=== PATIENT | male | born 1970 | race Caucasian/White ===

== ENCOUNTER 2020-08-21 00:55 | Observation (INO) ==
[2020-08-21] MEDS ORDERED: NITROGLYCERIN SL 0.4 MG/TAB TAB SL PRN ×2 (01:08→04:07)
--- NOTE | 2020-08-21 01:12 | Emergency Department Note ---
History of Present Illness General Chief Complaint: Chest Pain Stated Complaint: PAIN IN CHEST Time Seen by Provider: 08/21/20 01:02 History of Present Illness Maximum Pain Intensity: 2 This 50-year-old presents to the ER complaining of left-sided chest pain Location: Left-sided chest Quality: Pressure Severity: Moderate Duration: Past few hours Timing: Started while playing chess on the computer Context: Patient was concerned and came in Modifying factors: better with nothing; worse with nothing Patient denies any prior heart problems. Patient denies exertional chest pain, dyspnea, fever, chills, flulike illness, abdominal pain, leg pain or swelling, Covid. He has not received the Covid vaccine. He does not smoke. Home Medications Medication Instructions Recorded Confirmed Type albuterol sulfate [Proventil HFA] 2 puff INHALATION Q4 PRN 03/10/19 04/25/20 History multivitamin 1 tab PO HS 03/10/19 04/25/20 History omega 9-buy-kvr-fish oil [Fish Oil] 1 cap PO HS 03/10/19 04/25/20 History Allergies Allergy/AdvReac Type Severity Reaction Status Date / Time aspirin Allergy Unknown unknown, Verified 04/25/20 08:51 was told as kid demeclocycline Allergy Unknown unknown, Verified 04/25/20 08:51 [From Declomycin] was told as kid Tetracyclines Allergy Unknown Uncoded 04/25/20 08:51 Past Med/Surg History Medical History (Updated 08/21/20 @ 02:03 by Loreta Oswald PA-C) Asthma inhaler prn Attention and concentration deficit Elevated BP without diagnosis of hypertension Hyperlipidemia Mild asthma Morbid obesity with BMI of 40.0-44.9, adult Obstructive sleep apnea Pre-diabetes Sleep apnea cpap Surgical History History of oral surgery to reinserted broken teeth History of removal of cyst behind ear History of tonsillectomy and adenoidectomy History of wisdom tooth extraction Family History Grandfather (Maternal) Family history of diabetes mellitus Other No family history of adverse response to anesthesia Social History Smoking Status: Never smoker Second Hand Exposure: No; Hx Alcohol Use: Yes Alcohol type: beer Alcohol Intake Frequency: Monthly or Less Hx Substance Use: No Preferred Language: Tamazight Communication Ability: Effective Visual Impairment: Limited Hearing Ability: Normal 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 Beliefs That Will Affect Care: None marital status: Single Current Living Situation: Family Current Living Situation Comment: Lives with daughter 50/50 current occupational status: employed Feels Safe at Home: Yes Childhood Exposure to Second-Hand Smoke: No caffeine: Yes Dental Care, Regularly: No Physical Activity Frequency: 3-4 Times per Week Physical Activity Frequency Comment: yard work, walking Seatbelt Use: always Sunscreen Use: Yes Assistive Devices: CPAP and Glasses Review of Systems A total of 10 systems reviewed and were otherwise negative Physical Exam Vital Signs Vital Signs - 24 hr 08/21/20 01:00 08/21/20 01:18 Temperature 36.9 C Temperature Source Oral Pulse Rate 98 H Respiratory Rate 20 Respiratory Effort / Characteristics Non-Labored Spontaneous Respiratory Depth Normal Blood Pressure 171/93 H Blood Pressure Mean 119 Pulse Oximetry 97 95 Oxygen Delivery Method Room Air Room Air Sepsis Recent Fever Within 48 Hours No Sepsis New/Unexplained Change in Mental Status No Sepsis Action Taken by Nursing No Action Required VITALS: Vitals are noted on the nurse's note and reviewed by myself. Vital s igns stable. GENERAL: Anxious appearing male, in no acute distress, nondiaphoretic, well- developed well-nourished. SKIN: Capillary reflex less than 2 seconds. HEENT: Normocephalic. PERRLA. EOMI. Nares patent. Mucous membranes moist. Neck is supple without nuchal rigidity. HEART: Regular rate and rhythm, chest nontender to palpation LUNGS: Clear to auscultation bilaterally without wheezes, rales or rhonchi. No retractions or accessory muscle use. ABDOMEN: Positive bowel sounds x 4. Normal tympanic percussion. Soft, nontender, without masses or organomegaly. Arteaga sign negative. No guarding or rebound tenderness. MUSCULOSKELETAL: No gross musculoskeletal defects. NEURO: Patient was alert and oriented to person place and time. No focal neurological deficits. Course Administered Medications Nitroglycerin (Nitroglycerin Sl 0.4 Mg/Tab Tab) 0.4 mg SL UD PRN PRN Reason: Chest Pain Stop: 09/20/20 01:07 Last Admin: 08/21/20 01:15 Dose: 0.4 mg Documented by: [id number] Medical Decision Making Medical Records Attestation: I reviewed the patient's medical records. Home Medications Current Medication List: was personally reviewed by me Laboratory Data Attestation: I reviewed the patient's lab results. Result diagrams: 08/21/20 01:11 08/21/20 01:11 Labs: Lab Results 08/21/20 08/21/20 08/21/20 Range/Units 01:11 01:11 01:11 WBC 8.48 (4.8-10.8) K/uL RBC 5.02 (4.7-6.1) M/uL Hgb 15.6 (14.0-18.0) g/dL Hct 45.9 (42-52) % MCV 91.4 (80-100) fL MCH 31.1 (25-34) pg MCHC 34.0 (32-36) g/dL RDW Std Deviation 43.3 (36.4-46.3) fL RDW Coeff of Martin 13.1 (11.5-14.5) % Plt Count 311 (130-400) K/uL MPV 9.7 (7.4-10.4) fL Immature Gran % (Auto) 0.2 % Neut % (Auto) 56.2 % Lymph % (Auto) 30.7 % Emmons % (Auto) 8.1 % Eos % (Auto) 4.1 % Baso % (Auto) 0.7 % Neut # (Auto) 4.76 (1.4-6.5) K/uL Lymph # (Auto) 2.60 (1.2-3.4) K/uL Emmons # (Auto) 0.69 H (0.11-0.59) K/uL Eos # (Auto) 0.35 (0-0.5) K/uL Baso # (Auto) 0.06 (0-0.2) K/uL Immature Gran # (Auto) 0.02 (0.00-0.02) K/uL D-Dimer 330 (0-500) ug/L FEU Sodium 141 (136-145) mmol/L Potassium 4.0 (3.5-5.1) mmol/L Chloride 106 (98-107) mmol/L Carbon Dioxide 28 (21-32) mmol/L Anion Gap 7.0 (3-11) BUN 19 H (7-18) mg/dl Creatinine 1.12 (0.6-1.4) mg/dl Est Cr Clr Drug Dosing 119.3 ml/min Est GFR ( Amer) 87.1 Est GFR (Non-Af Amer) 75.1 BUN/Creatinine Ratio 17.3 (10-20) Glucose 136 H (70-99) mg/dl Calcium 9.1 (8.5-10.1) mg/dl Total Bilirubin 0.3 (0.2-1) mg/dl AST 21 (15-37) U/L ALT 41 (12-78) U/L Alkaline Phosphatase 113 (45-117) U/L Troponin I < 0.015 (0-0.045) ng/ml Total Protein 7.7 (6.4-8.2) gm/dl Albumin 4.0 (3.4-5.0) gm/dl Globulin 3.7 (2.5-4.0) gm/dl Albumin/Globulin Ratio 1.1 (0.9-2) Lipase 110 (73-393) U/L Specimen Hemolysis MDM Narrative Prior records/ancillary studies reviewed. Triage Nursing notes reviewed. The patient's history was concerning for chest pain. Differential diagnosis: Etiologies such as cardiac ischemia, aortic dissection, pulmonary embolism, pneumonia, pneumothorax, musculoskeletal, infections, pericarditis, myocarditis, esophageal rupture, gastrointestinal, as well as others were entertained. Physical examination: As above. ER treatment provided: An order was placed for continuous cardiac monitoring. The monitor shows a rate of 60-1 10 with a sinus rhythm. Nitroglycerin, Ativan. Patient is allergic to aspirin On reassessment the patient felt better. Diagnostic interpretation by me: #1 the electrocardiogram was normal sinus, normal intervals, minimal ST depression in the lateral leads, no old EKG. Rate of 100. Impression normal sinus rhythm with ST depression in the lateral leads interpreted by myself. EKG ordered for chest pain I think arrhythmia is unlikely. EKG shows normal sinus rhythm with no interval abnormalities such as QT prolongation or WPW. There are no findings to suggest Brugada syndrome. Cardiac monitoring in the emergency department reveals no tachycardic or bradycardic dysrhythmia. Hypertrophic cardiomyopathy was considered but there are no clear historical elements pointing toward this. EKG is not suggestive. The QRS voltage is not extremely large and there are no suggestive Q waves. #2 EKG ordered for chest pain EKG: Normal sinus, normal intervals, rate of 96, persistent ST depressions in the lateral leads. Impression normal sinus rhythm with persistent ST depression lateral leads interpreted by myself I think arrhythmia is unlikely. EKG shows normal sinus rhythm with no interval abnormalities such as QT prolongation or WPW. There are no findings to suggest Brugada syndrome. Cardiac monitoring in the emergency department reveals no tachycardic or bradycardic dysrhythmia. Hypertrophic cardiomyopathy was considered but there are no clear historical elements pointing toward this. EKG is not suggestive. The QRS voltage is not extremely large and there are no suggestive Q waves. The labs revealed negative troponin, negative dimer Imaging studies: Chest x-ray with no acute consolidation, pneumothorax or free air per my interpretation HEART SCORE: Hx: high/mod/low suspicion: 1 ECG: ST depression/nonspecific changes/normal: 1 Age: Greater than 65/45-64/less than 45: 1 Risk factors: (Hypertension, hyperlipidemia, diabetes, coronary disease, tobacco use, cocaine use): 2 Troponin: Greater than 2 times normal limits/1-2 times normal limits/normal: 0 Total: 5 Consultation: A consultation was placed with the hospitalist, Dr. Wetzel. The case was discussed and diagnostics were reviewed. The patient was evaluated in the ER for further treatment. Exam and history seem consistent with chest pain with an abnormal EKG. No old EKG for comparison. Patient has multiple risk factors. He has an aspirin allergy. Patient is agreeable to treatment plan of admission. Medicine was consulted. By the evaluation outlined above emergent etiologies such as aortic dissection, pulmonary embolism, pneumonia, pneumothorax, infections, pericarditis, myocarditis, gastrointestinal, as well as others were deemed rela tively unlikely. The pt informed about the findings as listed above. All questions were answered and pleased with the treatment. The chart was completed utilizing [employer] voice recognition software. Grammatical errors, random word insertions, pronoun errors, and incomplete sentences are an occassional consequence of this system due to software limitations, ambient noise, and hardware issues. Any formal questions or concerns about the content, text, or information contained within the body of this dictation should be directly addressed to the physician medical assistant ob gyn for clarification. Impression & Plan Chest pain Discharge Plan Visit Data Chief Complaint: Chest Pain Stated Complaint: PAIN IN CHEST ED Provider: Fabio Hay ED Midlevel Provider: Loreta Oswald Discharge Problem: Chest pain Patient Disposition: Being Evaluated by Hospitalist Condition: Good Forms Stand Alone Forms: My [facility] Prescriptions Prescriptions: No Action omega 2-zsa-iba-fish oil [Fish Oil] 1,000 mg (120 mg-180 mg) Capsule 1 cap PO HS RF: 0 multivitamin Tablet 1 tab PO HS RF: 0 albuterol sulfate [Proventil HFA] 90 mcg/actuation Hfa Aerosol Inhaler 2 puff INHALATION Q4 PRN (Reason: Shortness Of Breath) RF: 0 Referrals Referrals: Jose Calles MD [Primary Care Provider] - Discharge Problem: Chest pain Qualifiers: Chest pain type: unspecified Qualified Code(s): R07.9 - Chest pain, unspecified
[2020-08-21 01:19] LABS: Basophils # (auto) 0.06 K/uL (0-0.2); Basophils % (auto) 0.7 %; Eosinophils # (auto) 0.35 K/uL (0-0.5); Eosinophils % (auto) 4.1 %; Hematocrit (blood only) 45.9 % (42-52); Hemoglobin 15.6 g/dL (14.0-18.0); Immature Granulocytes # (auto) 0.02 K/uL (0.00-0.02); Immature Granulocytes % (auto) 0.2 %; Lymphocytes % (auto) 30.7 %; Mean Corpuscular Hemoglobin 31.1 pg (25-34); Mean Corpuscular Volume 91.4 fL (80-100); Mean Platelet Volume 9.7 fL (7.4-10.4); Monocytes # (auto) 0.69 K/uL (0.11-0.59); Monocytes % (auto) 8.1 %; Neutrophils # (auto) 4.76 K/uL (1.4-6.5); Neutrophils % (auto) 56.2 %; Platelet Count 311 K/uL (130-400); RDW Coefficient of Variation 13.1 % (11.5-14.5); RDW Standard Deviation 43.3 fL (36.4-46.3); Red Blood Count 5.02 M/uL (4.7-6.1); White Blood Count 8.48 K/uL (4.8-10.8)
[2020-08-21 01:27] LABS: D Dimer 330 ug/L FEU (0-500)
[2020-08-21 01:37] LABS: Alanine Aminotransferase 41 U/L (12-78); Aspartate Aminotransferase 21 U/L (15-37); BUN Creatinine Ratio 17.3 (10-20); Blood Urea Nitrogen 19 mg/dl (7-18); Calcium 9.1 mg/dl (8.5-10.1); Carbon Dioxide 28 mmol/L (21-32); Chloride 106 mmol/L (98-107); Creatinine Clr Calc Pharmacy 119.3 ml/min; Est GFR (African American) 87.1; Est GFR (Non-African American) 75.1; Glucose 136 mg/dl (70-99); Lipase 110 U/L (73-393); Sodium 141 mmol/L (136-145)
[2020-08-21 01:42] LABS: Albumin Globulin Ratio 1.1 (0.9-2); Alkaline Phosphatase 113 U/L (45-117); Bilirubin,Total 0.3 mg/dl (0.2-1); Globulin 3.7 gm/dl (2.5-4.0); Total Protein 7.7 gm/dl (6.4-8.2); Troponin I < 0.015 ng/ml (0-0.045)
[2020-08-21] MEDS ORDERED: LORazepam 1 MG/2 ML VIAL IV STA (01:45)
--- NOTE | 2020-08-21 03:15 | History & Physical Report ---
Date of Service August 21, 2020 Assessment & Plan (1) Chest pain: Suspect atypical chest pain. Pain started appx 3 hours prior to initial troponin. EKG is unremarkable. -Telemetry monitoring -Trend troponin -Check 2D echo -Allergy to ASA Present on Admission?: Yes (2) Elevated BP without diagnosis of hypertension: Stable BP, at goal without medication - currently 129/78 -Continue to monitor Present on Admission?: Yes (3) Hyperlipidemia: Fairly well controlled - labs from 04/2020 with total cholesterol of 199, UHE=840, HDL=50 and TG=84 -Fish oil outpatient Present on Admission?: Yes (4) Obstructive sleep apnea: Patient is 100% compliant with CPAP -Continue CPAP qHS - 11.5cm H20 Present on Admission?: Yes (5) Pre-diabetes: Last Hgb A1C 04/2020 was 5.8 -CC diet -Encourage healthy lifestyle choices F/E/N - Heplock. Check Mg. CC/AHA diet Ppx - Lovenox Code - Full Dispo -Obs to medical with telemetry History of Present Illness Chief Complaint: chest pain Primary Care Provider: Jose Calles MD [place] is a 50yo male with history of Pre-DM, HLP and NINI presenting with chest pain. Patient was sitting at the computer this evening when he developed acute discomfort in his LUQ. He described it as pressure and squeezing. Discomfort was non-radiating, non-pleuritic and non-positional. No associated diaphoresis, palpitations, SOB, nausea or lightheadedness. No history of prior. No known CAD. Presently chest pain free. Patient is fairly active - does yard work, gardens, was shoveling snow last week. Never has had exertional CP or dyspnea. Allergies Allergy/AdvReac Type Severity Reaction Status Date / Time aspirin Allergy Unknown unknown, Verified 08/21/20 02:04 was told as kid demeclocycline Allergy Unknown unknown, Verified 08/21/20 02:04 [From Declomycin] was told as kid Tetracyclines Allergy Unknown Unknown Uncoded 08/21/20 02:04 Home Medications Medication Instructions Recorded Confirmed Type albuterol sulfate [Proventil HFA] 2 puff INHALATION Q4 PRN 03/10/19 08/21/20 History multivitamin 1 tab PO HS 03/10/19 08/21/20 History omega 2-mcs-tev-fish oil [Fish Oil] 1 cap PO HS 03/10/19 08/21/20 History Past Med/Surg History Medical History Asthma inhaler prn Attention and concentration deficit Elevated BP without diagnosis of hypertension Hyperlipidemia Mild asthma Morbid obesity with BMI of 40.0-44.9, adult Obstructive sleep apnea Pre-diabetes Sleep apnea cpap Surgical History History of oral surgery to reinserted broken teeth History of removal of cyst behind ear History of tonsillectomy and adenoidectomy History of wisdom tooth extraction Family History Grandfather (Maternal) Family history of diabetes mellitus Other No family history of adverse response to anesthesia Social History Smoking Status: Never smoker Second Hand Exposure: No; Hx Alcohol Use: Yes Alcohol type: beer Alcohol Intake Frequency: Monthly or Less Hx Substance Use: No Preferred Language: Nepali Communication Ability: Effective Visual Impairment: Limited Hearing Ability: Normal Fiscal Clerk Required: No Beliefs That Will Affect Care: None marital status: Single Current Living Situation: Family Current Living Situation Comment: Lives with daughter 50/50 current occupational status: employed Feels Safe at Home: Yes Childhood Exposure to Second-Hand Smoke: No caffeine: Yes Dental Care, Regularly: No Physical Activity Frequency: 3-4 Times per Week Physical Activity Frequency Comment: yard work, walking Seatbelt Use: always Sunscreen Use: Yes Assistive Devices: CPAP and Glasses Review of Systems Review of Systems: All systems reviewed & are unremarkable except as noted in HPI & below Patient denies fever, chills, cough, SOB, edema, orthopnea, abdominal pain, nausea, vomiting, diarrhea, constipation Physical Exam Physical Exam: General: obese patient resting comfortably, NAD, non-toxic in appearance, AA&O x 4 Skin: warm, dry, intact, no rashes or lesions HEENT: NC/AT, PERRL, EOMI, anicteric sclera, conjunctiva without injection, external ear normal to inspection and nontender, nares patent, moist mucus membranes, dentition intact, no oropharyngeal lesions, neck supple, trachea midline, no LAD, no thyromegaly, no JVD Heart: +S1/S2, regular, no m/r/g Lungs: equal air entry bilaterally, no rales/rhonchi/wheezes Abd: +BS, soft, NT/ND, no masses/organomegaly/ascites Ext: warm, 2+ pulses in UE/LE bilaterally, no clubbing/cyanosis or edema Neuro: nonfocal, patient AA&O x 4, speech intact, no facial droop, moving all extremities on command with equal strength 5/5 Results & Data Results & Data ([facility]) Vital Signs (Past 12 Hours) Vital Signs Temp Pulse Resp BP Pulse Ox 08/21/20 02:30 92 H 18 129/78 94 08/21/20 02:00 90 24 134/81 95 08/21/20 01:27 98 H 18 143/82 H 94 08/21/20 01:18 95 08/21/20 01:00 36.9 C 98 H 20 171/93 H 97 Laboratory Results Lab Results 08/21/20 08/21/20 08/21/20 Range/Units 01:11 01:11 01:11 WBC 8.48 (4.8-10.8) K/uL RBC 5.02 (4.7-6.1) M/uL Hgb 15.6 (14.0-18.0) g/dL Hct 45.9 (42-52) % MCV 91.4 (80-100) fL MCH 31.1 (25-34) pg MCHC 34.0 (32-36) g/dL RDW Std Deviation 43.3 (36.4-46.3) fL RDW Coeff of Martin 13.1 (11.5-14.5) % Plt Count 311 (130-400) K/uL MPV 9.7 (7.4-10.4) fL Immature Gran % (Auto) 0.2 % Neut % (Auto) 56.2 % Lymph % (Auto) 30.7 % Wilcox % (Auto) 8.1 % Eos % (Auto) 4.1 % Baso % (Auto) 0.7 % Neut # (Auto) 4.76 (1.4-6.5) K/uL Lymph # (Auto) 2.60 (1.2-3.4) K/uL Wilcox # (Auto) 0.69 H (0.11-0.59) K/uL Eos # (Auto) 0.35 (0-0.5) K/uL Baso # (Auto) 0.06 (0-0.2) K/uL Immature Gran # (Auto) 0.02 (0.00-0.02) K/uL D-Dimer 330 (0-500) ug/L FEU Sodium 141 (136-145) mmol/L Potassium 4.0 (3.5-5.1) mmol/L Chloride 106 (98-107) mmol/L Carbon Dioxide 28 (21-32) mmol/L Anion Gap 7.0 (3-11) BUN 19 H (7-18) mg/dl Creatinine 1.12 (0.6-1.4) mg/dl Est Cr Clr Drug Dosing 119.3 ml/min Est GFR ( Amer) 87.1 Est GFR (Non-Af Amer) 75.1 BUN/Creatinine Ratio 17.3 (10-20) Glucose 136 H (70-99) mg/dl Calcium 9.1 (8.5-10.1) mg/dl Total Bilirubin 0.3 (0.2-1) mg/dl AST 21 (15-37) U/L ALT 41 (12-78) U/L Alkaline Phosphatase 113 (45-117) U/L Troponin I < 0.015 (0-0.045) ng/ml Total Protein 7.7 (6.4-8.2) gm/dl Albumin 4.0 (3.4-5.0) gm/dl Globulin 3.7 (2.5-4.0) gm/dl Albumin/Globulin Ratio 1.1 (0.9-2) Lipase 110 (73-393) U/L Specimen Hemolysis COVID-19 Eval Order SARS-CoV-2, RNA, NAAT (NEGATIVE) 08/21/20 08/21/20 Range/Units 02:05 02:05 WBC (4.8-10.8) K/uL RBC (4.7-6.1) M/uL Hgb (14.0-18.0) g/dL Hct (42-52) % MCV (80-100) fL MCH (25-34) pg MCHC (32-36) g/dL RDW Std Deviation (36.4-46.3) fL RDW Coeff of Martin (11.5-14.5) % Plt Count (130-400) K/uL MPV (7.4-10.4) fL Immature Gran % (Auto) % Neut % (Auto) % Lymph % (Auto) % Wilcox % (Auto) % Eos % (Auto) % Baso % (Auto) % Neut # (Auto) (1.4-6.5) K/uL Lymph # (Auto) (1.2-3.4) K/uL Wilcox # (Auto) (0.11-0.59) K/uL Eos # (Auto) (0-0.5) K/uL Baso # (Auto) (0-0.2) K/uL Immature Gran # (Auto) (0.00-0.02) K/uL D-Dimer (0-500) ug/L FEU Sodium (136-145) mmol/L Potassium (3.5-5.1) mmol/L Chloride (98-107) mmol/L Carbon Dioxide (21-32) mmol/L Anion Gap (3-11) BUN (7-18) mg/dl Creatinine (0.6-1.4) mg/dl Est Cr Clr Drug Dosing ml/min Est GFR ( Amer) Est GFR (Non-Af Amer) BUN/Creatinine Ratio (10-20) Glucose (70-99) mg/dl Calcium (8.5-10.1) mg/dl Total Bilirubin (0.2-1) mg/dl AST (15-37) U/L ALT (12-78) U/L Alkaline Phosphatase (45-117) U/L Troponin I (0-0.045) ng/ml Total Protein (6.4-8.2) gm/dl Albumin (3.4-5.0) gm/dl Globulin (2.5-4.0) gm/dl Albumin/Globulin Ratio (0.9-2) Lipase (73-393) U/L Specimen Hemolysis COVID-19 Eval [facility] SARS-CoV-2, RNA, NAAT NEGATIVE (NEGATIVE) Diagnostic Findings CXR - by my interpretation, no acute findings ECG Additional Comments: NSR, no acute ischemic changes Code Status & VTE Plan VTE Prophylaxis Plan VTE Prophylaxis will be ordered: Yes PG Care Time/CCT Total # of Minutes Spent Total Time Spent with Patient: Total time spent is greater than 50% in coordination of care (as documented) at patient's floor/unit and/or counseling patient: Coding Level of Care Code 64904 OBS Care - Level 2 Diagnoses Chest pain R07.9 Chest pain type: unspecified Elevated BP without diagnosis of hypertension R03.0 Hyperlipidemia E78.2 Hyperlipidemia type: mixed hyperlipidemia Obstructive sleep apnea G47.33 Pre-diabetes R73.03 (1) Chest pain Chest pain type: unspecified Qualified Code(s): R07.9 - Chest pain, unspecified (2) Hyperlipidemia Hyperlipidemia type: mixed hyperlipidemia Qualified Code(s): E78.2 - Mixed hyperlipidemia
[2020-08-21] MEDS ORDERED: ONDANSETRON INJ 2 MG/ML 2 ML VIAL IV PRN (04:07)
[2020-08-21] MEDS ORDERED: ACETAMINOPHEN 325 MG TAB PO PRN (04:07)
--- NOTE | 2020-08-21 07:59 | XRay Report ---
XR chest 1V portable HISTORY: Atypical Chest Pain COMPARISON: Chest CT 01/04/2008. FINDINGS: No pneumothorax. No pleural effusions. The cardiac silhouette is mildly enlarged. No focal lung consolidations to suggest pneumonia. No evidence for pulmonary edema. IMPRESSION: Mild cardiomegaly. ACT 112: Negative or not required by law. Electronically signed by: Carlos A Esquivel M.D. 08/21/2020 7:57 AM
[2020-08-21] MEDS ORDERED: ENOXAPARIN INJ 40 MG/0.4 ML SYR SQ SCH (09:00)
--- NOTE | 2020-08-21 11:46 | XCELERA ---
[id number]
--- NOTE | 2020-08-21 15:09 | Discharge Summary ---
Date of Service August 21, 2020 Admission HPI Per Admitting Provider Lion Grande is a 50yo male with history of Pre-DM, HLP and NINI presenting with chest pain. Patient was sitting at the computer this evening when he developed acute discomfort in his LUQ. He described it as pressure and squeezing. Discomfort was non-radiating, non-pleuritic and non-positional. No associated diaphoresis, palpitations, SOB, nausea or lightheadedness. No history of prior. No known CAD. Presently chest pain free. Patient is fairly active - does yard work, gardens, was shoveling snow last week. Never has had exertional CP or dyspnea. Principal Diagnosis Likely non-cardiac chest pain Discharge Exam Constitutional WD/WN, vitals as above Eyes EOM intact bilaterally; no conjunctival abnormality ENMT external ear and nose normal, oropharynx normal Neck trachea midline, no thyromegaly normal visual inspection Respiratory normal respiratory effort, lungs clear to auscultation no respiratory distress Cardiovascular RRR, no murmur, no edema Gastrointestinal (Abdomen) Inspection/Auscultation: abdomen normal to inspection; abdomen not distended Musculoskeletal no cyanosis or clubbing, extremities motor strength 5/5 Skin no rashes, warm and dry Neurologic moves all extremities and awake Psychiatric Orientation: alert, oriented to person and cooperative Discharge Data Allergies Allergy/AdvReac Type Severity Reaction Status Date / Time aspirin Allergy Unknown unknown, Verified 08/21/20 02:04 was told as kid demeclocycline Allergy Unknown unknown, Verified 08/21/20 02:04 [From Declomycin] was told as kid Tetracyclines Allergy Unknown Unknown Uncoded 08/21/20 02:04 Consultations 08/21/20 01:46 ED Decision to Admit Stat Hospital Course (1) Chest pain: Suspect atypical chest pain. Pain started appx 3 hours prior to initial troponin. EKG is unremarkable. - Troponins negative x 3. - Echo showed good EF (>70%) with no regional wall motion abnormalities. - No recurrence of chest pain while in the hospital. Discharge with plan to follow up with PCP. 10-year ASCVD risk is only 5%, so did not recommend starting an aspirin. Can discuss with PCP. (2) Elevated BP without diagnosis of hypertension: Stable BP, at goal without medication - currently 129/78 -Continue to monitor (3) Hyperlipidemia: Fairly well controlled - labs from 04/2020 with total cholesterol of 199, ARE=322, HDL=50 and TG=84 - Fish oil outpatient (4) Obstructive sleep apnea: Patient is 100% compliant with CPAP -Continue CPAP qHS - 11.5cm H20 (5) Pre-diabetes: Last Hgb A1C 04/2020 was 5.8 -CC diet -Encourage healthy lifestyle choices F/E/N - [place]. Check Mg. CC/AHA diet Ppx - Lovenox Code - Full Dispo -Obs to medical with telemetry Total Time Total Time Spent Total Time Spent (In Minutes): 35 Discharge Plan Discharge Items Patient Disposition: Home - Self-Care Reason For Visit: CHEST PAIN Discharge Diagnosis: Non-cardiac chest pain Condition on Discharge: Good Activity: Resume your previous activity Non-emergency contact: Primary Care Provider Call non-emergency contact if: your symptoms worsen Follow-up/Referrals: Jose Calles MD [Primary Care Provider] - 08/28/20 8:30 am (You have an appt with Tiana Collins on 08/28 @ 0830am. Please arrive 15 minutes prior to your appt. It is important that you keep this appt. If for any reason this appt does not fit your schedule, please call [phone] to reschedule. ) Diet: Heart Healthy Addtl Attending Provider Instructions: Mr. Grande, You were admitted to the hospital with chest pain. We did testing called troponins (also called cardiac enzymes) which were negative or normal. This is great news! This means without a doubt that you did NOT have a heart attack or any damage to the heart. We also did an ultrasound of your heart (called an echocardiogram) which was normal as well. This is also great because it means your heart is squeezing well and shows no signs of prior damage. Given the reassuring testing, we are happy to discharge you. If the chest pain comes back, trial a few doses of Tums or a heat back on your chest. If the pain gets worse or if you have any further symptoms with it such as dizziness, lightheadedness, shortness of breath, or other concerning symptoms, please call your doctor or return to the Emergency Department. Pending Studies at Discharge: No Stand-Alone Forms: My [facility] [employer], Smoking Cessation Medications and DC Order Prescriptions: Continued omega 9-ghb-vif-fish oil [Fish Oil] 1,000 mg (120 mg-180 mg) Capsule 1 cap PO HS RF: 0 multivitamin Tablet 1 tab PO HS RF: 0 albuterol sulfate [Proventil HFA] 90 mcg/actuation Hfa Aerosol Inhaler 2 puff INHALATION Q4 PRN (Reason: Shortness Of Breath) RF: 0 Discharge Orders: Discharge Order (Routine); Ordered 08/21/20 Ordered By: Landen Head Admission Data Admit Date/Time: 08/21/20 03:02 Attending Provider: Landen Head Admit Provider: Meghan Wetzel Primary Care Provider: Jose Calles Other Providers: Landen Head ; Meghan Wetzel Other Interventions: Discharge Summary Assessment (RN) Last Done: 08/21/20 12:59 Coding Level of Care Code 11366 OBS Care - Discharge Diagnoses Chest pain R07.9 Chest pain type: unspecified Elevated BP without diagnosis of hypertension R03.0 Hyperlipidemia E78.2 Hyperlipidemia type: mixed hyperlipidemia Obstructive sleep apnea G47.33 Pre-diabetes R73.03
--- NOTE | 2020-08-22 05:52 | Electrocardiogram Report ---
Test Reason : Blood Pressure : / mmHG Vent. Rate : 100 BPM Atrial Rate : 100 BPM P-R Int : 164 ms QRS Dur : 092 ms QT Int : 342 ms P-R-T Axes : 020 059 008 degrees QTc Int : 441 ms Normal sinus rhythm Normal ECG No previous ECGs available Confirmed by Julien Bartlett ([id number]) on 08/22/2020 5:52:35 AM Referred By: REFERRED SELF Confirmed By:Julien Bartlett
--- NOTE | 2020-08-22 05:53 | Electrocardiogram Report ---
Test Reason : Blood Pressure : / mmHG Vent. Rate : 096 BPM Atrial Rate : 096 BPM P-R Int : 166 ms QRS Dur : 086 ms QT Int : 348 ms P-R-T Axes : 014 059 007 degrees QTc Int : 439 ms Normal sinus rhythm Normal ECG When compared with ECG of 21-AUG-2020 01:00, No significant change was found Confirmed by Julien Bartlett ([id number]) on 08/22/2020 5:52:55 AM Referred By: REFERRED SELF Confirmed By:Julien Bartlett
== END 2020-08-21 13:30 | disposition home or self-care (01) ==
LOC: 2W 00:55 → ED 00:55 → SUATTDRO 03:02 → 2W 03:33